=== PATIENT | female | born 1950 | race Two or more races ===

== ENCOUNTER 2020-12-14 06:00 | Day surgery (SDC) | payer OTHER ==
[~2020-12-14] VITALS: Ht 144.8 cm; Wt 73.9 kg
[~2020-12-14 06:00] MED LIST: D3 + K2 DOTS 11 EACH PO; LAMICTAL200 M1 PO; LIPITOR20 MG PO; ZESTRIL2.5 MG PO
[2020-12-14] MEDS ORDERED: DICLOFENAC POTA50 MG (08:51)
[2020-12-14] MEDS ORDERED: VITAMIN D3125 MC1 (08:52)
[2020-12-14] MEDS ORDERED: RESTASIS1 EACH (08:52)
== END 2020-12-14 18:00 | disposition home or self-care (01) ==
LOC: CIR.AMB 06:00 → SURH 07:00 → O/R 07:18 → EDSTATUS 07:30 → SURH 07:30 → O/R 15:05 → CIR.AMB 18:00 → O/R 12-21 11:37
PROVIDERS: ATTEND Orthopaedic Surgery Sports Medicine
DX: M17.11 Unilateral primary osteoarthritis, right knee (principal); Z20.822 Contact with and (suspected) exposure to COVID-19; Z53.09 Procedure and treatment not carried out because of other contraindication; G40.89 Other seizures
CPT/HCPCS: 27447; C1776

== ENCOUNTER 2021-04-02 07:00 | Inpatient (IN) | payer OTHER ==
[~2021-04-02] VITALS: Ht 144.8 cm; Wt 77.1 kg
[~2021-04-02 07:00] MED LIST changes: +DICLOFENAC POTA50 MG; +RESTASIS1 EACH; +VITAMIN D3125 MC1
[2021-04-02] MEDS ORDERED: TEGRETOL XR400 MG PO (08:20)
[2021-04-07] MEDS ORDERED: XARELTO10 MG PO (08:04)
[2021-04-07] MEDS ORDERED: OXYC1TAB9 PO (08:04)
[2021-04-07] MEDS ORDERED: INTEGRA PLUS C1 EACH PO (08:04)
[2021-04-07] MEDS ORDERED: BACTRIM DS TAB1 EACH PO (08:04)
== END 2021-04-07 16:48 | disposition home or self-care (01) | DRG 470 ==
LOC: O/R 04-05 06:07 → SURG 04-05 19:05 → SURH 04-06 07:00 → SURG 04-07 16:48
PROVIDERS: ADMIT Orthopaedic Surgery Sports Medicine; ATTEND Orthopaedic Surgery Sports Medicine
PROC: 0SRC0J9 Replacement of Right Knee Joint with Synthetic Substitute, Cemented, Open Approach (ICD-10-PCS; principal; 2021-04-05 09:45)
DX: M17.11 Unilateral primary osteoarthritis, right knee (principal); G40.89 Other seizures; I10 Essential (primary) hypertension; Z20.822 Contact with and (suspected) exposure to COVID-19